=== PATIENT | female | born 1990 | race Caucasian/White ===

== ENCOUNTER → 2020-12-31 | Outpatient (CLI) | payer OTHER | END | disposition home or self-care (01) | LOC: LABWHC1 08:53 | PROVIDERS: ATTEND Internal Medicine | DX: L50.9 Urticaria, unspecified (principal) | CPT/HCPCS: 86003 ==

== ENCOUNTER 2025-03-29 20:34 | Emergency (ER) | payer BC, OTHER ==
[2025-03-29 22:03] VITALS: RESP 18; TEMP 98.1
--- NOTE | 2025-03-29 22:06 | ED ---
Female Urogenital HPI - General Chief complaint: Recheck/Abnormal Lab/Rx Stated complaint: Possible tubes tied Time Seen by Provider: 03/29/25 22:05 Source: patient, RN notes reviewed, old records reviewed Mode of arrival: ambulatory Limitations: no limitations - History of Present Illness Initial comments: This is a 34 female to the ED co possibility of . Patient does have positive at home test, patient does have concern for ectopic mild pain, patient does have tubes tied 10 years ago denying possibility of pr egnancy but did have positive test. No other complaints no chills no sick contacts MD Complaint: pelvic pain (tubes tied), other (possible ) -: days(s) Location: suprapubic Radiation: suprapubic Severity: mild Severity scale (1-10): 3 Quality: sharp Consistency: constant Improves with: none Worsens with: none Patient : Yes (unsure) Associated Symptoms: denies other symptoms - Related Data Sexually active: No Home Medications Medication Instructions Recorded Confirmed Albuterol Inhaler [Ventolin Hfa 2 puff INHALATION RT-Q6H PRN 06/22/16 06/22/16 Inhaler] Albuterol Nebulized [Ventolin 2.5 mg INHALATION RT-Q6H PRN 06/22/16 06/22/16 Nebulized] Budesonide/Formoterol Fumarate 2 puff INHALATION RT-BID 06/22/16 06/22/16 [Symbicort 80-4.5 Mcg Inhaler] SUMAtriptan succinate [Imitrex] 50 mg PO Q2H PRN MDD 100MG 06/22/16 06/22/16 Previous Rx's Medication Instructions Recorded Albuterol Inhaler [Ventolin Hfa 1 - 2 puff INHALATION Q4-6H PRN #1 06/22/16 Inhaler] inhaler Albuterol Nebulized [Ventolin 2.5 mg INHALATION Q4H #20 nebu 06/22/16 Nebulized] predniSONE 50 mg PO DAILY #5 tab 06/22/16 traMADol HCl [Ultram] 50 mg PO Q6H PRN #12 tab 11/17/22 Allergies Allergy/AdvReac Type Severity Reaction Status Date / Time Penicillins Allergy Anaphylaxis Verified 03/29/25 22:02 Review of Systems ROS Statement: Those systems with pertinent positive or pertinent negative responses have been documented in the HPI. ROS Other: All systems not noted in ROS Statement are negative. Past Medical History Past Medical History: Asthma, Syncope Additional Past Medical History / Comment(s): Migraines, Obstetric history: First was a primary low transverse at 34 weeks for pre- eclampsia. Her second and third pregnancies were successful VBACs at term. Fourth was a spontaneous . This is her fifth and she has had care with me since 10 weeks gestation. O+, abs neg, Rub Imm, RPR Nr, Hep B neg, toxo neg, neg quad. abnormal 1hr but normal 3 hr GTT. GBS neg, normal anatomy US. History of Any Multi-Drug Resistant Organisms: None Reported Past Surgical History: Section Additional Past Surgical History / Comment(s): D&C 04/30. WISDOM TEETH EXTRACTED UNDER ANESTHSIA Past Anesthesia/Blood Transfusion Reactions: Motion Sickness, Postoperative Nausea & Vomiting (PONV) Past Psychological History: Depression Smoking Status: Never smoker Past Alcohol Use History: None Reported Past Drug Use History: None Reported - Past Family History Brother(s) Family Medical History: Neurologic Disorder General Exam Limitations: no limitations General appearance: alert, in no apparent distress Head exam: Present: atraumatic, normocephalic, normal inspection Eye exam: Present: normal appearance, PERRL, EOMI. Absent: scleral icterus, conjunctival injection, periorbital swelling ENT exam: Present: normal exam, mucous membranes moist Neck exam: Present: normal inspection. Absent: tenderness, meningismus, lymphadenopathy Respiratory exam: Present: normal lung sounds bilaterally. Absent: respiratory distress, wheezes, rales, rhonchi, stridor Cardiovascular Exam: Present: regular rate, normal rhythm, normal heart sounds. Absent: systolic murmur, diastolic murmur, rubs, gallop, clicks GI/Abdominal exam: Present: soft, normal bowel sounds. Absent: distended, tenderness, guarding, rebound, rigid Extremities exam: Present: normal inspection, full ROM, normal capillary refill. Absent: tenderness, pedal edema, joint swelling, calf tenderness Back exam: Present: normal inspection Neurological exam: Present: alert, oriented X3, CN II-XII intact Psychiatric exam: Present: normal affect, normal mood Skin exam: Present: warm, dry, intact, normal color. Absent: rash Course Vital Signs 03/29/25 21:58 Temperature 98.1 F Pulse Rate 84 Respiratory 18 Rate Blood Pressure 144/88 O2 Sat by Pulse 100 Oximetry - Reevaluation(s) Reevaluation #1: 03/29/25 22:13 Medical records reviewed Reevaluation #2: 03/29/25 22:13 Patient's symptoms improved Reevaluation #3: 03/29/25 23:22 Patient informed of results questions answered Reevaluation #4: Was pt. sent in by a medical professional or institution (FRANNY Gant, FINAL EXPENSE AGENT, urgent care, hospital, or intermediate...) When possible be specific @ -no Did you speak to anyone other than the patient for history (EMS, parent, family, police, friend...)? What history was obtained from this source @ -no Did you review nursing and triage notes (agree or disagree)? Why? @ -agree Are old charts reviewed (outside hosp., previous admission, EMS record, old EKG, old radiological studies, urgent care reports/EKG's, intermediate records)? Report findings @ -yes Differential Diagnosis (chest pain, altered mental status, abdominal pain women, abdominal pain men, vaginal bleeding, weakness, fever, dyspnea, syncope, headache, dizziness, GI bleed, back pain, seizure, CVA, palpatations, mental health, musculoskeletal)? @ -prior EKG interpreted by me (3pts min.). @ -yes X-rays interpreted by me (1pt min.). @ -yes negative for acute disease CT interpreted by me (1pt min.). @ -no U/S interpreted by me (1pt. min.). @ -no What testing was considered but not performed or refused? (CT, X-rays, U/S, labs)? Why? @ -none What meds were considered but not given or refused? Why? @ -none Did you discuss the management of the patient with other professionals (professionals i.e. FRANNY Gant, FINAL EXPENSE AGENT, lab, RT, psych nurse, social worker delinquency prevention, car hop, teacher, community chest officer, returned case inspector)? Give summary @ -no Was smoking cessation discussed for >3mins.? @ -no Was critical care preformed (if so, how long)? @ -no Were there social determinants of health that impacted care today? How? (Homelessness, low income, unemployed, alcoholism, drug addiction, transportation, low edu. Level, literacy, decrease access to med. care, correction, rehab)? @ -none Was there de-escalation of care discussed even if they declined (Discuss DNR or withdrawal of care, Hospice)? DNR status @ -no What co-morbidities impacted this encounter? (DM, HTN, Smoking, COPD, CAD, Cancer, CVA, ARF, Chemo, Hep., AIDS, mental health diagnosis, sleep apnea, morbid obesity)? @ -none Was patient admitted / discharged? Hospital course, mention meds given and route, prescriptions, significant lab abnormalities, going to OR and other pertinent info. @ - Undiagnosed new problem with uncertain prognosis? @ -no Drug Therapy requiring intensive monitoring for toxicity (Heparin, Nitro, Insulin, Cardizem)? @ -no Were any procedures done? @ -no Diagnosis/symptom? @ - Acute, or Chronic, or Acute on Chronic? @ -Acute Uncomplicated (without systemic symptoms) or Complicated (systemic symptoms)? @ -Complicated Side effects of treatment? @ -no Exacerbation, Progression, or Severe Exacerbation? @ -exacerbation Poses a threat to life or bodily function? How? (Chest pain, [place], [place], pneumonia, PE, COPD, DKA, ARF, appy, cholecystitis, CVA, Diverticulitis, Homicidal, Suicidal, threat to staff... and all critical care pts) @ -yes Medical Decision Making - Medical Decision Making 34 female with negative testing here in the emergency room, patient feels reassured after that result and can be discharged home - Lab Data Lab Results 03/29/25 03/29/25 Range/Units 22:16 22:16 Urine Color Colorless Urine Appearance Cloudy H (Clear) Urine pH 7.0 (5.0-8.0) Ur Specific [place] 1.010 (1.001-1.035) Urine Protein Negative (Negative) Urine Glucose (UA) Negative (Negative) Urine Ketones Negative (Negative) Urine Blood Negative (Negative) Urine Nitrite Negative (Negative) Urine Bilirubin Negative (Negative) Urine Urobilinogen <2.0 (<2.0) mg/dL Ur Leukocyte Esterase Negative (Negative) Urine RBC <1 (0-5) /hpf Urine WBC 4 (0-5) /hpf Ur Squamous Epith Cells 12 H (0-4) /hpf Amorphous Sediment Occasional H (None) /hpf Urine Mucus Rare H (None) /hpf Urine HCG, Qual Not Detected (Not Detectd) Disposition Clinical Impression: Normal exam Disposition: HOME SELF-CARE Condition: Good Instructions (If sedation given, give patient instructions): Normal Exam (ED) Is patient prescribed a controlled substance at d/c from ED?: No Referrals: Najma Nathan MD [Primary Care Provider] - 1-2 days Time of Disposition: 23:00
[2025-03-29 22:58] LABS: Amorphous Sediment,Urine Occasional /hpf; Bilirubin,Urine Negative (Negative); Blood,Urine Negative (Negative); Color,Urine Colorless; Glucose,Urine (UA) Negative (Negative); Ketones,Urine Negative (Negative); Leukocyte Esterase,Urine Negative (Negative); Mucus,Urine Rare /hpf; Nitrite,Urine Negative (Negative); PH, Urine 7.0 (5.0-8.0); Protein,Urine Negative (Negative); RBC,Urine <1 /hpf (0-5); Specific Gravity,Urine 1.010 (1.001-1.035); Squamous Epithelial Cell,Urine 12 /hpf (0-4); Urobilinogen,Urine <2.0 mg/dL (<2.0); WBC,Urine 4 /hpf (0-5)
[2025-03-29 23:29] VITALS: BP 100/61; PULSE 82
== END 2025-03-29 23:29 | disposition home or self-care (01) ==
LOC: EC 20:34
DX: Z32.02 Encounter for pregnancy test, result negative (principal); Z88.0 Allergy status to penicillin
CPT/HCPCS: 81001; 81025; 99283